=== PATIENT | female | born 2000 ===

== ENCOUNTER 2021-10-15 00:35 | Emergency (ER) | payer BC ==
[2021-10-15] MEDS ORDERED: Nitrofurantoin Monohydrate/Macrocrystalline 100 MG Cap PO ONE ×2 (00:36→02:00)
[2021-10-15 01:25] LABS: AMPHETAMINES,URINE NEGATIVE (NEGATIVE); BARBITURATES,URINE NEGATIVE (NEGATIVE); BENZODIAZEPINE,URINE NEGATIVE (NEGATIVE); MDMA (ECSTASY), URINE NEGATIVE (NEGATIVE); METHADONE,URINE NEGATIVE (NEGATIVE); METHAMPHETAMINES,URINE NEGATIVE (NEGATIVE); OPIATES,URINE NEGATIVE (NEGATIVE); OXYCODONE,URINE NEGATIVE (NEGATIVE); PHENCYCLIDINE,URINE NEGATIVE (NEGATIVE); TCA,URINE NEGATIVE (NEGATIVE)
[2021-10-15 01:26] LABS: ANION GAP 12.7 mEq/L (7-13)
[2021-10-15] MEDS ORDERED: Phenazopyridine 95 MG Tab PO ONE (02:01)
[2021-10-15] MEDS ORDERED: Nitrofurantoin Monohydrate/Macrocrystalline 100 MG Cap ONE (02:10)
== END 2021-10-15 02:17 | disposition home or self-care (01) ==
LOC: DL.ED 00:35
DX: N30.00 Acute cystitis without hematuria (principal); F17.210 Nicotine dependence, cigarettes, uncomplicated
CPT/HCPCS: 36415; 80053; 80305-QW; 81001; 81025; 82150; 83605; 83690; 85025; 87086; 87088; 87186; 99283; 99284; A9270-GY